=== PATIENT | female | born 1985 | race Caucasian/White ===

== ENCOUNTER 2023-06-26 13:19 | Emergency (ER) | payer OTHER ==
[~2023-06-26] VITALS: Ht 170.2 cm; Wt 61.2 kg
[2023-06-26 13:53] VITALS: BP 122/74
[2023-06-26 14:28] LABS: BASOPHILS ABSOLUTE AUTO 0.05 K/mm3 (0.00-0.23); BASOPHILS PERCENT AUTO 1 % (0-2); EOSINOPHILS ABSOLUTE AUTO 0.22 K/mm3 (0.00-0.68); EOSINOPHILS PERCENT AUTO 3 % (0-6); Hematocrit 38.2 % (33.0-51.0); IMMATURE GRAN ABSOLUTE AUTO 0.01 K/mm3 (0.00-0.10); IMMATURE GRAN PERCENT AUTO 0 % (0-1); LYMPHOCYTES PERCENT AUTO 19 % (21-46); MONOCYTES ABSOLUTE AUTO 0.42 K/mm3 (0.16-1.47); MONOCYTES PERCENT AUTO 6 % (4-13); Mean Corpuscular HGB 32.1 pg (26.0-34.0); Mean Corpuscular Volume 94 fL (80-100); Mean Platelet Volume 9.7 fL (9.1-12.4); NEUTROPHILS ABSOLUTE AUTO 4.83 K/mm3 (1.96-9.15); NEUTROPHILS PERCENT AUTO 71 % (41-73); Platelet Count 216 K/mm3 (150-400); RDW Coefficient Variation 11.5 % (11.7-14.2); RDW Standard Deviation 39.9 fL (35.1-46.3); Red Blood Cell Count 4.05 M/mm3 (3.80-5.20); White Blood Cell Count 6.83 K/mm3 (4.00-11.30)
[2023-06-26 14:46] LABS: Albumin, Blood 4.3 g/dL (3.4-5.0); Albumin/Globulin Ratio 1.2 (0.8-1.8); Bilirubin, Total 0.5 mg/dL (0.1-1.0); Bun/Creatinine Ratio 21.5 (12.0-20.0); Calcium, Blood 8.9 mg/dL (8.5-10.1); Creatinine, Blood 0.74 mg/dL (0.40-1.00); Globulin, Blood 3.6 g/dL (2.2-4.0); Total Protein, Blood 7.9 g/dL (6.4-8.2)
[2023-06-26 16:27] LABS: Source, Urine Clean Catch
[2023-06-26 16:33] LABS: Appearance, Urine Clear (Clear); Bilirubin, Urine Neg (Neg); Blood, Urine Neg (Neg); Glucose Qualitative, Urine Neg (Neg); Ketones, Urine Neg (Neg); Leukocyte Esterase, Urine Neg (Neg); Nitrite, Urine Neg (Neg); Protein, Urine Neg (Neg); Urobilinogen, Urine NORM (Normal)
[2023-06-26 16:48] LABS: Color, Urine Pale Yellow (P-Yellow)
[2023-06-26] MEDS ORDERED: OMEP20ER PO (17:11)
== END 2023-06-26 17:26 | disposition home or self-care (01) ==
LOC: ER 13:19
PROVIDERS: Physician Assistant
DX: K27.9 Peptic ulcer, site unspecified, unspecified as acute or chronic, without hemorrhage or perforation (principal); Z88.1 Allergy status to other antibiotic agents; Z88.2 Allergy status to sulfonamides
CPT/HCPCS: 76705; 80053; 81003; 81025; 83690; 85025; 99284-25

== ENCOUNTER 2023-07-16 04:32 | Emergency (ER) | payer OTHER ==
[~2023-07-16] VITALS: Ht 170.2 cm; Wt 61.2 kg
[~2023-07-16 04:32] MED LIST: OMEP20ER PO
[2023-07-16 06:37] LABS: BASOPHILS ABSOLUTE AUTO 0.04 K/mm3 (0.00-0.23); BASOPHILS PERCENT AUTO 1 % (0-2); EOSINOPHILS ABSOLUTE AUTO 0.04 K/mm3 (0.00-0.68); EOSINOPHILS PERCENT AUTO 1 % (0-6); Hematocrit 35.5 % (33.0-51.0); Hemoglobin 12.2 g/dL (11.5-16.0); IMMATURE GRAN ABSOLUTE AUTO 0.04 K/mm3 (0.00-0.10); IMMATURE GRAN PERCENT AUTO 1 % (0-1); LYMPHOCYTES ABSOLUTE AUTO 0.86 K/mm3 (0.84-5.20); LYMPHOCYTES PERCENT AUTO 10 % (21-46); MONOCYTES ABSOLUTE AUTO 0.52 K/mm3 (0.16-1.47); MONOCYTES PERCENT AUTO 6 % (4-13); Mean Corpuscular HGB 31.8 pg (26.0-34.0); Mean Corpuscular HGB Conc 34.4 g/dL (31.5-36.5); Mean Corpuscular Volume 92 fL (80-100); Mean Platelet Volume 10.1 fL (9.1-12.4); NEUTROPHILS ABSOLUTE AUTO 7.26 K/mm3 (1.96-9.15); NEUTROPHILS PERCENT AUTO 83 % (41-73); Platelet Count 217 K/mm3 (150-400); RDW Coefficient Variation 11.6 % (11.7-14.2); RDW Standard Deviation 39.1 fL (35.1-46.3); Red Blood Cell Count 3.84 M/mm3 (3.80-5.20); White Blood Cell Count 8.76 K/mm3 (4.00-11.30)
[2023-07-16 07:05] LABS: Albumin, Blood 3.8 g/dL (3.4-5.0); Albumin/Globulin Ratio 1.2 (0.8-1.8); Bilirubin, Total 0.5 mg/dL (0.1-1.0); Bun/Creatinine Ratio 16.4 (12.0-20.0); Calcium, Blood 8.8 mg/dL (8.5-10.1); Creatinine, Blood 0.67 mg/dL (0.40-1.00); Globulin, Blood 3.3 g/dL (2.2-4.0); Total Protein, Blood 7.1 g/dL (6.4-8.2)
[2023-07-16 07:37] LABS: Source, Urine Clean Catch
[2023-07-16 07:42] LABS: Appearance, Urine Clear (Clear); Bilirubin, Urine Neg (Neg); Blood, Urine Neg (Neg); Color, Urine Yellow (P-Yellow); Glucose Qualitative, Urine Neg (Neg); Ketones, Urine Neg (Neg); Leukocyte Esterase, Urine 1+ (Neg); Nitrite, Urine Neg (Neg); Protein, Urine 2+ (Neg); Specific Gravity, Urine 1.015 (1.003-1.022); Urobilinogen, Urine NORM (Normal); pH, Urine 6.5 (5.0-8.0)
[2023-07-16 08:08] LABS: Hyaline Casts 0-2 /lpf (0-2)
[2023-07-16 08:10] LABS: Mucus Heavy (0-Heavy)
[2023-07-16 08:11] LABS: Bacteria Mod /hpf; White Blood Cells, Urine 0-2 /hpf (0-5)
[2023-07-16 08:12] LABS: Squamous Epithelial Cells Few /hpf (Few)
[2023-07-16 08:13] LABS: Red Blood Cells, Urine 0-2 /hpf (0-2)
[2023-07-16 09:00] VITALS: BP 94/64
[2023-07-16] MEDS ORDERED: OMEP20ER PO (09:42)
[2023-07-16] MEDS ORDERED: ONDA4ODT MM (10:00)
== END 2023-07-16 10:00 | disposition home or self-care (01) ==
LOC: ER 04:32
PROVIDERS: Emergency Medicine; Student in an Organized Health Care Education/Training Program
DX: R10.13 Epigastric pain (principal); R11.2 Nausea with vomiting, unspecified; R10.811 Right upper quadrant abdominal tenderness; Z88.1 Allergy status to other antibiotic agents; Z88.2 Allergy status to sulfonamides
CPT/HCPCS: 74177; 80053; 81001; 83690; 84703; 85025; 87086; 93005; 93010; 96361; 96374-59; 99284-25; A9270; J7030; Q9967

== ENCOUNTER → 2023-08-20 | Outpatient (CLI) | payer OTHER ==
[~2023-08-20] MED LIST changes: +ONDA4ODT MM
[2023-08-22 21:52] LABS: LACTOFERRIN,FECAL BY ELISA Negative (Negative)
== END ==
LOC: LAB SHORT 08:15 → LAB 08:15
PROVIDERS: Physician Assistant
DX: R10.13 Epigastric pain (principal); R19.7 Diarrhea, unspecified
CPT/HCPCS: 83630

== ENCOUNTER 2023-09-07 03:50 | Emergency (ER) | payer OTHER ==
[~2023-09-07] VITALS: Ht 170.2 cm; Wt 59.0 kg
[2023-09-07] MEDS ORDERED: KETAMINE SL (04:23)
[2023-09-07 04:29] LABS: BASOPHILS ABSOLUTE AUTO 0.02 K/mm3 (0.00-0.23); BASOPHILS PERCENT AUTO 0 % (0-2); EOSINOPHILS ABSOLUTE AUTO 0.11 K/mm3 (0.00-0.68); EOSINOPHILS PERCENT AUTO 2 % (0-6); Hematocrit 35.2 % (33.0-51.0); Hemoglobin 12.2 g/dL (11.5-16.0); IMMATURE GRAN ABSOLUTE AUTO 0.01 K/mm3 (0.00-0.10); IMMATURE GRAN PERCENT AUTO 0 % (0-1); LYMPHOCYTES ABSOLUTE AUTO 0.86 K/mm3 (0.84-5.20); LYMPHOCYTES PERCENT AUTO 13 % (21-46); MONOCYTES ABSOLUTE AUTO 0.41 K/mm3 (0.16-1.47); MONOCYTES PERCENT AUTO 6 % (4-13); Mean Corpuscular HGB Conc 34.7 g/dL (31.5-36.5); Mean Corpuscular Volume 92 fL (80-100); Mean Platelet Volume 9.9 fL (9.1-12.4); NEUTROPHILS ABSOLUTE AUTO 5.09 K/mm3 (1.96-9.15); NEUTROPHILS PERCENT AUTO 78 % (41-73); Platelet Count 171 K/mm3 (150-400); RDW Coefficient Variation 11.8 % (11.7-14.2); RDW Standard Deviation 40.5 fL (35.1-46.3); Red Blood Cell Count 3.81 M/mm3 (3.80-5.20)
[2023-09-07 04:54] LABS: Albumin/Globulin Ratio 1.2 (0.8-1.8); Bilirubin, Total 0.3 mg/dL (0.1-1.0); Bun/Creatinine Ratio 20.5 (12.0-20.0); Calcium, Blood 8.9 mg/dL (8.5-10.1); Creatinine, Blood 0.78 mg/dL (0.40-1.00); Globulin, Blood 3.2 g/dL (2.2-4.0); Potassium, Blood 4.2 mmol/L (3.5-5.5); Total Protein, Blood 7.2 g/dL (6.4-8.2)
[2023-09-07 05:00] VITALS: BP 99/60
[2023-09-07] MEDS ORDERED: Atropine/Scopalam/Hyoscam/PB 5 ML UDC PO ONE (05:25)
[2023-09-07] MEDS ORDERED: Mag Hydrox/AL Hydrox/Simeth 30 ML UDC PO ONE (05:25)
[2023-09-07] MEDS ORDERED: Lidocaine 2% Viscous Soln 15 ML UDC PO ONE (05:25)
[2023-09-07] MEDS ORDERED: FAMO20 PO (06:20)
[2023-09-07] MEDS ORDERED: SUCR1 PO (06:20)
== END 2023-09-07 06:32 | disposition home or self-care (01) ==
LOC: ER 03:50
PROVIDERS: Student in an Organized Health Care Education/Training Program
DX: K29.70 Gastritis, unspecified, without bleeding (principal); Z87.11 Personal history of peptic ulcer disease; Z88.1 Allergy status to other antibiotic agents; Z88.2 Allergy status to sulfonamides
CPT/HCPCS: 80053; 83690; 85025; 99284-25; A9270

== ENCOUNTER → 2023-10-15 | Outpatient (CLI) | payer OTHER ==
[~2023-10-15] MED LIST changes: +FAMO20 PO; +KETAMINE SL; +SUCR1 PO
[2023-10-19 08:34] LABS: HPV HIGH RISK BY TMA Not Detected; HPV SOURCE Cervical
== END | disposition home or self-care (01) ==
LOC: LAB 10:06 → LAB SHORT 10:06
PROVIDERS: Family Medicine
DX: Z01.419 Encounter for gynecological examination (general) (routine) without abnormal findings (principal)
CPT/HCPCS: 87624; G0123

== ENCOUNTER 2024-04-09 07:54 | Day surgery (SDC) | payer OTHER ==
[~2024-04-09] VITALS: Ht 170.2 cm; Wt 61.4 kg
[~2024-04-09 07:54] MED LIST changes: +Lactated Ringer's 1,000 ML IV ONE
[2024-04-09] MEDS ORDERED: propofoL 20 ML IV ONE (08:11)
[2024-04-09] MEDS ORDERED: FentaNYL Citrate 50 MCG/ML 2 ML Injection ONE (08:12)
[2024-04-09] MEDS ORDERED: Lactated Ringer's 1,000 ML IV ONE (08:12)
[2024-04-09] MEDS ORDERED: LevonorgestreL 1 EACH IUD VAG SCH (08:20)
[2024-04-09] MEDS ORDERED: VILAZODONE HCL40 MG PO (08:22)
[2024-04-09] MEDS ORDERED: Midazolam HCl 1MG / ML 2ML Vial ONE (08:51)
[2024-04-09] MEDS ORDERED: Dexamethasone Sod Phos 10 MG/ML 1ML VIAL ONE ×2 (09:15→09:57)
[2024-04-09] MEDS ORDERED: Ondansetron HCl 2 MG / ML 2ML Vial ONE ×2 (09:15→09:57)
[2024-04-09] MEDS ORDERED: Ketorolac Tromethamine 30mg Vial ONE (09:17)
--- NOTE | 2024-04-09 09:23 | NUR ---
04/09/24 0923 Laury Armijo 51MG LOT #[id number] EXP 07/2028
--- NOTE | 2024-04-09 09:51 | NUR ---
04/09/24 0951 CLAU BISWAS PT HAS CONTINUED TO DENY PAIN/NAUSEA.
[2024-04-09] MEDS ORDERED: OxyCODONE 5 mg/Acetamin 325 mg TABLET ONE (10:15)
[2024-04-09 10:34] VITALS: BP 101/68
== END 2024-04-09 10:30 | disposition home or self-care (01) ==
LOC: ORSCSDS 07:54
PROVIDERS: Obstetrics & Gynecology
PROC: 0UH97HZ Insertion of Contraceptive Device into Uterus, Via Natural or Artificial Opening (ICD-10-PCS; principal; 2024-04-09 09:00)
DX: N92.0 Excessive and frequent menstruation with regular cycle (principal); Z30.432 Encounter for removal of intrauterine contraceptive device; F41.9 Anxiety disorder, unspecified; Z79.899 Other long term (current) drug therapy
CPT/HCPCS: A9270; J1100; J1885; J2250; J2405; J2704; J3010; J7120; J7297